=== PATIENT | female | born 1955 ===

== ENCOUNTER 2019-01-18 05:50 | Day surgery (SDC) | payer OTHER ==
[~2019-01-18 05:50] MED LIST: COZAAR25 MG; HUMALOG KW100 UNIT/1 SUBCUTANEO; HUMALOG100 UNIT/1; HYZAAR 100-251 EACH PO; LANTUS SOL100 UNIT/1 SUBCUTANEO; METFORMIN HCL500 MG PO; METOPROLOL TA37.5 MG PO; SYNTHROID100 MCG PO
[2019-01-18] MEDS ORDERED: PERCOCET 5-3251 EACH PO (09:23)
[2019-01-18] MEDS ORDERED: NABUMETONE750 MG PO (09:24)
== END 2019-01-18 14:35 | disposition home or self-care (01) ==
LOC: CIR.AMB 05:50
DX: M23.352 Other meniscus derangements, posterior horn of lateral meniscus, left knee (principal); M94.262 Chondromalacia, left knee; M65.862 Other synovitis and tenosynovitis, left lower leg